=== PATIENT | male | born 1980 | race Caucasian/White ===

== ENCOUNTER → 2020-04-21 | Outpatient (REF) ==
--- NOTE | 2020-04-21 10:24 | Diagnostic Imaging Report ---
INDICATION: Injury to left shoulder AP, oblique, and transscapular views left shoulder are obtained No fracture or dislocation is seen. There is no acute bone abnormality. Glenohumeral joint and AC joint appear unremarkable. IMPRESSION: Negative left shoulder. Dictated by: Dictated on workstation # [id number]
== END ==
LOC: OCC 09:58
PROVIDERS: ATTEND Family Medicine
DX: M25.512 Pain in left shoulder (principal)
CPT/HCPCS: 73030